=== PATIENT | male | born 1960 | race American Indian/Alaskan Native ===

== ENCOUNTER 2017-08-08 17:01 | Emergency (ER) | payer MEDICAID ==
[2017-08-08] MEDS ORDERED: ULTRAM PO ONE (18:22)
--- NOTE | 2017-08-08 18:22 | Emergency Department Report ---
Blank Doc - Documentation Documentation: Patient is a 57-year-old -[place] male past medical history of stroke with some mild left-sided deficit and desire dysarthria who states he was turned around and he ran into a tree. Patient states his does have poor vision at baseline mages haven't accidentally bumped into the tree. Patient states despite the fact that he has dysarthrias there is no change in his dysarthria. Patient states he is walking normal for him to move in his arms and legs at baseline. Patient has no new deficits. Patient states that he does have a mild headache after hitting his head and is a small abrasion above the left eye. Head CT will be done to rule out cerebral contusion.
--- NOTE | 2017-08-08 19:26 | Cat Scan Report ---
FINAL REPORT PROCEDURE: CT HEAD/BRAIN WO CON TECHNIQUE: Computerized tomography of the head was performed without contrast material. HISTORY: closed head injury COMPARISON: No prior studies are available for comparison. FINDINGS: There is encephalomalacia in the posterior right parietal lobe. No CT evidence of intracranial mass, hemorrhage, acute territorial infarction, or hydrocephalus. The intracranial arteries are symmetric in density. There is left frontal scalp soft tissue swelling. No acute fracture is identified. Visualized paranasal sinuses and mastoids are aerated. There is chronic appearing deformity of the left medial orbital wall. IMPRESSION: No CT evidence of acute intracranial abnormality
--- NOTE | 2017-08-08 19:55 | Cat Scan Report ---
FINAL REPORT PROCEDURE: CT CERVICAL SPINE WO CON TECHNIQUE: Computerized tomography of the cervical spine was performed from the skull base to T1 without contrast material. HISTORY: closed head injury COMPARISON: No prior studies are available for comparison. FINDINGS: There is straightening of the usual cervical lordosis. There are multilevel degenerative disc changes, with disc space narrowing and osteophyte formation. No acute fracture or subluxation is seen. There is scarring of the right upper lung IMPRESSION: No acute fracture or subluxation is identified.
[2017-08-08] MEDS ORDERED: BOOSTRIX IM ONE (20:56)
[2017-08-08] MEDS ORDERED: TRIPLE ANTIBIOTIC TP ONE (20:56)
[2017-08-08] MEDS ORDERED: KEFLEX PO ONE (20:56)
--- NOTE | 2017-08-08 21:00 | Emergency Department Report ---
ED Head Injury/Laceration HPI - HPI Occurred When: Today Mechanism: Direct Blow Location: Facial (left facial area beside eyebrow) Pain: Mild (3/10, sore.) Tetanus Status: Not up to Date Symptoms: Loss of Consciousness: No, Nausea: No, Blurred Vision: No (patient reports that he has vision problem after having a history of TIA and stroke.), Unusual Behavior: No, Headache: Yes (sore 3/10 frontally, left), Swelling: Yes ( swelling to left face), Bruising: Yes (left face), Break in Skin: Yes (abrasion to left face), Bleeding: Yes (cut to left face) Other History: Patient is a 57-year-old -[place] male past medical history of stroke with some mild left-sided deficit and desire dysarthria who states he was turned around and he ran into a tree. Patient states his does have poor vision at baseline mages haven't accidentally bumped into the tree. Patient states despite the fact that he has dysarthrias there is no change in his dysarthria. Patient states he is walking normal for him to move in his arms and legs at baseline. Patient has no new deficits. Patient states that he does have a mild headache after hitting his head and is a small abrasion above the left eye. Pain to head and left facial area is 3/10 and sore. Denies any dizziness. Denies any chest pain or shortness of breath. Nothing makes patient pain better and nothing makes it worse. Unsure of tetanus status. No medication taken prior to coming to the emergency room. She denies any loss of consciousness with head injury. Incident was witnessed by a bystander per patient. ED General PMH - Past Medical History General Medical History: other (CVA, TIA, hypertension, left-sided weakness, partial blindness) Surgical History: other (appendectomy) LMP (females 10-50): other (not applicable) - Family History Significant Family History: hypertension - Social History Smoking Status: Current Every Day Smoker Alcohol Use: none Drug Use: N ED Review of Systems ROS: Stated complaint: FOREHEAD LACERATION Other details as noted in HPI Comment: All other systems reviewed and negative Constitutional: no symptoms reported Eyes: other (history of poor vision). denies: eye pain, eye discharge, vision change ENT: denies: throat pain, epistaxis Respiratory: no symptoms reported Cardiovascular: denies: chest pain, palpitations, dyspnea on exertion, edema, syncope, paroxysmal nocturnal dyspnea Gastrointestinal: denies: abdominal pain, nausea, vomiting, diarrhea, hematemesis, hematochezia Musculoskeletal: denies: back pain, joint swelling, arthralgia, myalgia Skin: rash (cut to left facial area) Neurological: headache, other (patient with baseline left-sided weakness from stroke). denies: weakness, numbness, paresthesias, confusion, abnormal gait, vertigo Head Inj w/lac Physical Exam - Exam General: Vital signs noted. No distress. Alert and acting appropriately. This is a 57-year-old male well-nourished well-developed that is nontoxic in appearance. Adult Head Front + Back: 1 - Patient with abrasion to left facial area. Mild swelling and an tender to palpate. No bleeding noted. Head: Yes PERRL (BPERRL, EOMI, ASIA sclera and conjunctiva normal), Yes Hematoma/ Ecchymosis, Yes Abrasion (Left facial area beside eye brow), No Hemotympanum, No Epistaxis, No Stepoff/Deformity, No Foreign Body Wound Length (cm): 0 (abrasion) Laceration Location: Facial, Other (abrasion left facial area beside eyebrow) Chest, Abd, & Ext: Yes Clear Lung Sounds (CTAB. ), Yes Regular Heart Rhythm (S! S2. RRR), No Neck Pain (no C-spine tenderness, full range of motion, supple), No Chest Injury/Pain (No CW tenderness. No contusion or crepitis), No Heart Murmur, No Abdominal Tenderness (NTTP. Normal BS), No Back Tenderness (No vertegral or paraspinal tenderness), No Extremity Injury (No CCE. +2 pulse) Neuroligical (Head Inj W/O Lac: Yes Focal Weakness (patient with left-sided weakness from previous stroke in the past. No change from baseline), Yes Normal Gait, No Lethargy, No Disorientation, No Focal Numbness, No Normal Speech (show what dysarthria which is no change from his baseline from previous stroke.) Exam: Psych: Normal mood and behavior ED Disposition Clinical Impression: Abrasion, face w/o infection Minor head injury without loss of consciousness Qualifiers: Encounter type: initial encounter Qualified Code(s): S09.90XA - Unspecified injury of head, initial encounter Post-traumatic headache, not intractable Qualifiers: Headache chronicity pattern: acute headache Qualified Code(s): G44.319 - Acute post-traumatic headache, not intractable Facial contusion Qualifiers: Encounter type: initial encounter Qualified Code(s): S00.83XA - Contusion of other part of head, initial encounter Disposition: - TO HOME OR SELFCARE Is pt being admited?: No Does the pt Need Aspirin: No Condition: Stable Instructions: Minor Head Injury (ED), Abrasion (ED), Contusion in Adults (ED), Acute Headache (ED) Additional Instructions: follow-up with your primary care physician in the morning for evaluation status post minor head injury without loss of consciousness. He [address] Neosporin ointment once daily to affected area to face and try to keep affected area clean and dry. Take Keflex as prescribed Take Tylenol plain if you develop pain. Need to have 24-hour evaluation check by primary care doctor, urgent care or emergency room that as well as closed head injury. Prescriptions: Acetaminophen [Tylenol] 500 mg PO Q8H PRN #12 tablet PRN Reason: Pain Cephalexin [Keflex] 500 mg PO Q12HR 7 Days #14 cap Referrals: PRIMARY CARE, [Primary Care Provider] - 08/09/17 ED Medical Decision Making - Radiology Data Radiology results: report reviewed CT scan of C-spine reveal no acute fracture or subluxation is identified CT scan of the head revealed no CT evidence of acute intracranial abnormality - Medical Decision Making ED course: Patient presented to the emergency room complaining that he has vision impairment from previous stroke and that he walked into a tree. Denies alcohol involvement. Denies any loss of consciousness. Patient with physical findings for small abrasion to left facial area which was cleansed with normal saline and triple antibiotic ointment placed in the thigh. His tetanus vaccine was up-to-date with 0.5 mL of blood streaks. Patient was given tramadol that was ordered by Dr. Ewing 50 mg when necessary emergency room. CT scan of the brain without contrast and CT scan of the neck without contrast showed no acute abnormality. This was communicated to patient and I discussed with him he needs to follow up with his primary care who he does that he has a primary care doctor. I told him that he needs to read discharge instruction on closed head injury and he needs 24-hour follow-up for neurological checks. I told him he can either go through his primary care, urgent care or return to the emergency room. He voiced understanding the discharge diagnosis and treatment plan. Patient given 500 mg Keflex by mouth in the emergency room. Discharged home with prescription for Keflex and plain Tylenol ED Course Vital Signs 08/08/17 08/08/17 17:10 18:38 Temperature 99.3 F Pulse Rate 80 Respiratory 20 18 Rate Blood Pressure 132/93 O2 Sat by Pulse 98 Oximetry - Reevaluation(s) Reevaluation #1: 08/08/17 21:15 Patient stable throughout ED course. He was screened by Dr. Jacquie Ewing and was given tramadol 50 mg by mouth emergency room. Patient is stable. Abrasion to left side of face cleansed with normal saline and Neosporin ointment placed the site. Patient voiced that his pain is relieved.
[2017-08-08 21:49] VITALS: BP 124/89
== END 2017-08-08 21:47 | disposition home or self-care (01) ==
LOC: ED 17:01
DX: S00.212A Abrasion of left eyelid and periocular area, initial encounter (principal); F17.200 Nicotine dependence, unspecified, uncomplicated; Z90.49 Acquired absence of other specified parts of digestive tract; W26.8XXA Contact with other sharp object(s), not elsewhere classified, initial encounter; Y93.89 Activity, other specified; Y92.89 Other specified places as the place of occurrence of the external cause; Y99.8 Other external cause status
CPT/HCPCS: 70450; 72125; 90471; 90715; 99283; A6250